=== PATIENT | male | born 1945 | race Caucasian/White ===

== ENCOUNTER 2017-08-19 23:36 | Emergency (ER) | payer MEDICARE, OTHER ==
[~2017-08-19] VITALS: Ht 177.8 cm; Wt 66.1 kg
[2017-08-19 23:51] VITALS: Ht 177.8 cm; Wt 66.1 kg
--- NOTE | 2017-08-20 01:10 | ERD ---
ER Documentation Chief Complaint Chief Complaint vomited multiple times since 3 hours ago HPI The patient is a 71-year-old male, presenting to the ER because of vomiting about 3 hours ago, initially food and phlegm. He denies any abdominal pain, diarrhea, fever, chills, neck pain, chest pain. He does not smoke or drink Medical history: Dementia, CAD, hypertension Surgical history: Stent PCI ROS All systems reviewed and are negative except as per history of present illness. Medications Home Meds Active Scripts Ondansetron (Ondansetron Odt) 4 Mg Tab.rapdis, 4 MG PO Q6H Y for NAUSEA AND/OR VOMITING, #10 TAB Prov:SUSANA BAIRES MD 08/20/17 Allergies Allergies: Coded Allergies: No Known Allergy (Unverified , 08/19/17) Physical Exam Vitals Vital Signs Date Time Temp Pulse Resp B/P Pulse Ox O2 Delivery O2 Flow Rate FiO2 08/20/17 03:33 98.6 78 21 135/85 100 Room Air 08/20/17 01:10 98.2 72 25 167/72 99 Room Air 08/19/17 23:51 98.2 81 20 199/84 99 Physical Exam Const: No acute distress. Head: Atraumatic. Eyes: Normal Conjunctiva. ENT: Normal External Ears, Nose and Mouth. Neck: Full range of motion. No meningismus. Resp: Clear to auscultation bilaterally. Cardio: Regular rate and rhythm. Abd: Soft, non distended, normal bowel sounds, non tender. Skin: No petechiae or rashes. Back: No midline or flank tenderness. Ext: No cyanosis, or edema. Neur: Awake and alert. No focal deficit Psych: Normal Mood and Affect. Result Diagram: 08/20/17 0130 08/20/17 013 Results 24 hrs Laboratory Tests Test 08/20/17 01:30 08/20/17 01:49 White Blood Count 8.510^3/ul Red Blood Count 4.6010^6/ul Hemoglobin 13.7g/dl Hematocrit 39.9% Mean Corpuscular Volume 86.7fl Mean Corpuscular Hemoglobin 29.8pg Mean Corpuscular Hemoglobin Concent 34.3g/dl Red Cell Distribution Width 12.8% Platelet Count 6710^3/UL Mean Platelet Volume 10.8fl Neutrophils % 94.9% Lymphocytes % 1.5% Monocytes % 3.0% Eosinophils % 0.1% Basophils % 0.1% Nucleated Red Blood Cells % 0.0/100WBC Neutrophils # 8.010^3/ul Lymphocytes # 0.110^3/ul Monocytes # 0.310^3/ul Eosinophils # 0.010^3/ul Basophils # 0.010^3/ul Nucleated Red Blood Cells # 0.010^3/ul Platelet Estimate DECREASED Sodium Level 147mmol/L Potassium Level 3.9mmol/L Chloride Level 104mmol/L Carbon Dioxide Level 28mmol/L Anion Gap 19 Blood Urea Nitrogen 23mg/dl Creatinine 1.21mg/dl Glucose Level 123mg/dl Calcium Level 9.1mg/dl Total Bilirubin 3.3mg/dl Direct Bilirubin 0.00mg/dl Indirect Bilirubin 3.3mg/dl Aspartate Amino Transf (AST/SGOT) 21IU/L Alanine Aminotransferase (ALT/SGPT) 33IU/L Alkaline Phosphatase 101IU/L Total Protein 7.5g/dl Albumin 4.6g/dl Globulin 2.90g/dl Albumin/Globulin Ratio 1.58 Lipase 68U/L Bedside Urine pH (LAB) 7.0 Bedside Urine Protein (LAB) 1+ Bedside Urine Glucose (UA) Negative Bedside Urine Ketones (LAB) 1+ Bedside Urine Blood Negative Bedside Urine Nitrite (LAB) Negative Bedside Urine Leukocyte Esterase (L Negative Current Medications Medications (Trade) Dose Ordered Sig/Omid Route PRN Reason Start Time Stop Time Status Last Admin Dose Admin Ondansetron HCl 4 mg 4 mg ONCE STAT IV 08/20/17 01:16 08/20/17 01:17 DC 08/20/17 01:53 Sodium Chloride (NS) 500 ml @ 500 mls/hr Q1H ONCE IV 08/20/17 03:30 08/20/17 04:29 DC 08/20/17 03:38 Procedures/MDM EKG: Read by emergency physician Rate/Rhythm: Normal Sinus Rhythm 65 beats/min QRS, ST, T-waves: No ST elevation, no T inversion Impression: Normal EKG MEDICAL MAKING DECISION: The patient is 71-year-old male, presenting with acute vomiting of unclear etiology. He aas treated with for her mL normal saline for clinical dehydration, Zofran 4 mg IV for vomiting with good response The differential diagnoses considered include but are not limited to cholelithiasis, cholecystitis, cystitis, pancreatitis, hepatitis, gastritis, peptic ulcer disease, gastric ulcer, appendicitis, diverticulitis, cholangitis, choledocholithiasis, partial small bowel obstruction. Departure Diagnosis: Primary Impression: Vomiting Additional Impressions: Dehydration Anemia Condition: Good Comments He was discharged with [facility] [place] I discussed the findings with the patient. I advised the patient to follow-up with the primary physician in about 1-2 days, sooner if needed and return if any concern. Disclaimer: Inadvertent spelling and grammatical errors are likely due to EHR/ dictation software use and do not reflect on the overall quality of patient care. Also, please note that the electronic time recorded on this note does not necessarily reflect the actual time of the patient encounter. SUSANA BAIRES MD Aug 20, 2017 01:10
[2017-08-20] MEDS ORDERED: ONDANSETRON 4 MG INJ IV STA (01:16)
[2017-08-20 01:49] LABS: URINE BLOOD (Dip) POC Negative (NEGATIVE)
[2017-08-20 02:49] LABS: ABNORMAL IP MESSAGE 1; BASOPHILS % 0.1 % (0.0-2.0); EOSINOPHILS % 0.1 % (0.0-7.0); HEMATOCRIT 39.9 % (42.0-52.0); HEMOGLOBIN 13.7 g/dl (14.0-18.0); LYMPHOCYTES # 0.1 10^3/ul (0.8-2.9); LYMPHOCYTES % 1.5 % (15.0-51.0); MEAN CORPUSCULAR HEMOGLOBIN 29.8 pg (29.0-33.0); MEAN CORPUSCULAR HGB CONC 34.3 g/dl (32.0-37.0); MEAN CORPUSCULAR VOLUME 86.7 fl (82.0-101.0); MEAN PLATELET VOLUME 10.8 fl (7.4-10.4); MONOCYTE # 0.3 10^3/ul (0.3-0.9); NEUTROPHILS % 94.9 % (39.0-77.0); PLATELET COUNT 67 10^3/UL (140-415); POSITIVE DIFF @See below; RED CELL DISTRIBUTION WIDTH 12.8 % (11.5-14.5); WHITE BLOOD COUNT 8.5 10^3/ul (4.8-10.8)
[2017-08-20 03:10] LABS: ALBUMIN 4.6 g/dl (3.3-4.9); ALBUMIN/GLOBULIN RATIO 1.58; BILIRUBIN,INDIRECT 3.3 mg/dl (0-1.1); BILIRUBIN,TOTAL 3.3 mg/dl (0.2-1.3); CALCIUM 9.1 mg/dl (8.4-10.2); CREATININE 1.21 mg/dl (0.61-1.24); POTASSIUM 3.9 mmol/L (3.5-5.1); TOTAL PROTEIN 7.5 g/dl (6.1-8.1)
[2017-08-20] MEDS ORDERED: ONDA4TAB14 PO (03:30)
[2017-08-20] MEDS ORDERED: SOD CHLORIDE 0.9% 500 ML IV ONE (03:30)
[2017-08-20 04:38] LABS: PLATELET ESTIMATE DECREASED
[2017-08-20 08:03] VITALS: BP 119/60; PULSE 70; RESP 17; TEMP 98.6
== END 2017-08-20 08:11 | disposition home or self-care (01) ==
LOC: E/R 23:36
DX: E86.0 Dehydration (principal); D64.9 Anemia, unspecified; I25.10 Atherosclerotic heart disease of native coronary artery without angina pectoris; I10 Essential (primary) hypertension; R40.2142 Coma scale, eyes open, spontaneous, at arrival to emergency department; R40.2252 Coma scale, best verbal response, oriented, at arrival to emergency department; R40.2362 Coma scale, best motor response, obeys commands, at arrival to emergency department; Z98.61 Coronary angioplasty status
CPT/HCPCS: 36415; 80053; 81003; 83690; 85025; 96361; 96374; 99284; J2405; J7040; 93005